=== PATIENT | female | born 1950 | race Caucasian/White ===

== ENCOUNTER 2024-02-06 08:29 | Inpatient (IN) | payer OTHER, SELFPAY ==
[2024-02-04 20:13] VITALS: BP 124/67
[2024-02-04 20:28] LABS: Hematocrit 35.1 % (37.0-47.0); Hemoglobin 12.1 g/dL (12.0-16.0); Mean Corp Hgb Conc. 34.5 g/dL (33.0-37.0); Mean Corpuscular Hgb 31.4 pg (27.0-31.0); Mean Corpuscular Volume 91.2 fL (81.0-99.0); Mean Platelet Volume 10.7 fL (7.4-10.4); Platelet Count 264 10^3/uL (130-400); Red Blood Cell Count 3.85 10^6/uL (4.20-5.40); Red Cell Dist. Width 13.2 % (11.5-14.5); White Blood Cell Count 7.3 10^3/uL (4.8-10.8)
[2024-02-04 20:46] LABS: ALT (SGPT) 16 U/L (0-35); AST (SGOT) 26 U/L (14-36); Albumin 4.2 g/dl (3.5-5.0); Alkaline Phosphatase 91 U/L (38-126); Blood Urea Nitrogen 16 mg/dl (7-17); Calcium 9.8 mg/dl (8.4-10.2); Carbon Dioxide 29 mmol/L (22-30); Chloride 102 mmol/L (98-107); Glucose 100 mg/dl (70-99); Potassium 4.6 mmol/L (3.5-5.1); Sodium 136 mmol/L (135-145); Total Bilirubin 0.6 mg/dl (0.2-1.3); Total Protein 7.2 g/dl (6.3-8.2); eGFR > 60.00
[2024-02-04 20:49] LABS: % Basophils 0.8 % (0-2); % Eosinophils 2.2 % (0-6); % Immature Granulocytes 0.1 % (0-0.5); % Lymphocytes 57.2 % (20.5-51.1); % Monocytes 11.1 % (1.7-9.3); % Neutrophils 28.6 % (42.2-75.2); Absolute Basophils 0.1 10^3/uL (0-0.2); Absolute Eosinophils 0.2 10^3/uL (0-0.7); Absolute Lymphocytes 4.2 10^3/uL (1.2-3.4); Absolute Monocytes 0.8 10^3/uL (0.1-0.6); Absolute Neutrophils 2.1 10^3/uL (1.4-6.5); Nucleated Red Blood Cells % 0 %
[2024-02-04 21:34] VITALS: BMI 24.7
--- NOTE | 2024-02-04 23:21 | ED.GENMED ---
History of Present Illness
General
Chief Complaint: Numbness
Source: patient
Exam Limitations: none
Time Seen by Provider: 02/04/24 22:57
Nursing documentation reviewed up to this point in time: agreed with
History of Present Illness
History of Present Illness:
Patient is a 73-year-old female reports around 7 PM she was sitting in bed and felt numbness and tingling to her right arm and in her right face. She reports it lasted for about a minute. She walked in the campo to get her daughter and symptoms
were resolved. She did feel little weak in her right arm as well. She denied any associated headache headache.
She does not feel that her right arm is 100 %send back to normal. She describes as very minimally heavy feeling.
She is on hormone replacement therapy
Review of Systems
Review of Systems
Allergies reviewed?: Yes
Other source history: family
All Other Systems: ROS reviewed and negative except as documented in HPI and ROS
Constitutional: Reports no symptoms
Respiratory: Reports no symptoms
Cardiac: Reports no symptoms; Denies chest pain, palpitations or syncope
ABD/GI: Reports no symptoms
: Reports no symptoms
Musculoskeletal: Reports no symptoms
Skin: Reports no symptoms
Neurological: Reports other (Paresthesias to right arm and right face has since resolved); Denies dizzy or headache
Psychiatric: Reports no symptoms
Phy Exam
General Physical Exam
General Presentation: no apparent distress
General age: appears stated age
General Skin: warm and dry
General Habitus: normal
General Mental: alert
General Hydration: appears well hydrated
Cardiovascular Exam
Cardiovascular Exam: regular rate/rhythm, no murmur and normal peripheral pulses
Pulmonary Exam
Pulmonary Exam: lungs clear and no respiratory distress
Neurological Exam
Neurological Exam: alert, oriented x3, no motor deficits, normal reflexs, no sensory deficits and speech normal
NIH Stroke Score
Level of Consciousness: 0 - Alert
LOC questions: 0-Answers both correctly
LOC Commands: 0-Performs both correctly
Best Gaze: 0-Normal
Visual Fontana: 0=Normal, no visual loss
Facial palsy: 0=Normal, symmetrical
Motor - Right Arm: 0=No drift 10 seconds
Motor - Left Arm: 0=No drift 10 seconds
Motor - Right Le-No drift 5 seconds
Motor - Left Le-No drift 5 seconds
Limb Ataxia: 0-Absent
Sensation: 0-Normal
Best Language: 0-No aphasia
Dysarthria: 0-Normal
Extinction and Inattention: 0-No abnormality
Total Score:: 0
Course
Orders/Labs/Results
Orders:
Orders
02/04/24 20:21
Complete Blood Count/With Diff Urgent
Comprehensive Metabolic Panel Urgent
02/04/24 23:22
CT Head W/o Iv Contrast Urgent
Comment:
Reason For Exam: right arm/face numbness
02/04/24 23:23
Electrocardiogram (*1) Stat
Reason for Study: Other
Other Reason for Exam: chest pain
EKG- Treatment ONCE
02/05/24 00:08
Aspirin Chewable [Low Strength Aspirin] 324 mg PO NOW STA
02/05/24 00:09
Clopidogrel Bisulfate [Plavix] 300 mg PO NOW STA
Abnormal Lab Results
02/04/24
20:21
RBC 3.85 L 10^6/uL
(4.20-5.40)
Hct 35.1 L %
(37.0-47.0)
MCH 31.4 H pg
(27.0-31.0)
MPV 10.7 H fL
(7.4-10.4)
Absolute Lymphs (auto) 4.2 H 10^3/uL
(1.2-3.4)
Absolute Monos (auto) 0.8 H 10^3/uL
(0.1-0.6)
Neutrophils % 28.6 L %
(42.2-75.2)
Lymphocytes % 57.2 H %
(20.5-51.1)
Monocytes % 11.1 H %
(1.7-9.3)
Glucose 100 H mg/dl
(70-99)
02/04/24 20:21
02/04/24 20:21
Vital Signs
Initial and Last Documented VS:
Initial Vital Signs
Temp Pulse Resp BP Pulse Ox
97.9 F 75 16 124/67 99
02/04/24 20:13 02/04/24 20:13 02/04/24 20:13 02/04/24 20:13 02/04/24 20:13
Last Documented Vital Signs
Temp Pulse Resp BP Pulse Ox
97.9 F 75 16 124/67 99
02/04/24 20:13 02/04/24 20:13 02/04/24 20:13 02/04/24 20:13 02/04/24 20:13
Phlebotomy Technician consulted with Physician
Phlebotomy Technician consulted with physician?: Yes
Name of Physician Consulted: Artur
MDM/Problems Addressed
Differential Diagnosis Includes:
not limited to: TIA CVA radiculopathy
MDM/Problems Addressed:
Patient is a 73-year-old female on oral estrogen therapy only no other medical history presents with complaints of right arm numbness and right facial numbness around 7 PM. She did feel sensation of heaviness with this. She denies any speech
difficulty denies any headaches. Her neuroexam is normal with an NIH of 0. Case discussed with neurology will CT head and if negative admit for TIA workup will give aspirin and Plavix at that time.
0009: CT head neg ASA/Plavix ordered
*Radiology
Radiology exam reviewed: radiology read reviewed
*Pulse Oximetry
Patient hypoxic: no
*EKG
Interpreted by ED Provider?: Yes
Heart Rate: 59
Rate: bradycardiac
Rhythm: sinus
*Critical Care Note
Total Time (30-74mins, 75-104mins- exclusive of procedures): Not Applicable
Patient Management
Discussion with other providers: [employer] Operator (neuro DR De Leon )
ED Attending Note
-
Portions of this chart may have been created with voice recognition software.� Occasional wrong word or��sound alike� substitutions may have occurred due to the inherent limitations of voice recognition software.
Discharge Plan
Departure
Patient Disposition: Admit
Date of Disposition: 02/05/24
Time of Disposition: 00:10
Admit to: Telemetry
Admit to doctor: hospitalist
Presentation/result/management discussed w/ accepting MD/DO: Hospitalist
Patient with high blood pressure during this ER visit?: No
Condition: Fair
Discharge Problem:
TIA (transient ischemic attack)
Referrals:
Shahnaz Solis MD [Family Provider] -
Interventions
Interventions:
*Risk Screen - Suicide Last Done: 02/04/24 21:34
*General Assessment Last Done: 02/04/24 20:13
*Neglect/Abuse Screening Last Done: 02/04/24 21:34
ED- Fall Risk Assessment Last Done: 02/04/24 21:34
ED- Neurological Assessment Last Done: 02/04/24 21:34
Discharge Date and Time
Print Language: SAMOAN
[2024-02-05] VITALS (9 sets, daily range): BP systolic 98–132; BP diastolic 53–72; PULSE 65–99; O2SAT 98–100; BMI 23.1
[2024-02-05] MEDS: LOW STRENGTH ASPIRIN 324 MG PO (00:21)
[2024-02-05] MEDS: PLAVIX 300 MG PO (00:21)
--- NOTE | 2024-02-05 01:46 | HPS.HSE ---
Family Physician
-
Family Physician: Shahnaz Solis
Chief Complaint
-
Numbness
History of Present Illness
Patient is a 73y F with no significant PMH who presents to ED complaining of numbness and tingling. Patient states she felt well until she got out of the shower this evening. She was seated upright in bed reading a book around 7:15 PM when she
noted numbness and tingling in the RUE. This spread to include tingling of the R face as well. Patient went to get her daughter for help and by the time she got down the campo the symptoms had resolved.
However, patient then appreciated a 'heavy' sensation or drift of the RUE.
Given this symptom, she presented to the ED for further evaluation and treatment.
She currently states that her symptoms have fully resolved and she is back to normal.
She denies any prior history of similar symptoms.
No recent illness / complaints.
Patient takes estrogen supplementation daily and vitamins.
Medical History
Past Medical History
Past Medical History: Reports None
Past Surgical History: Reports Other
Additional Past Surgical History:
Right Cervical Lymph Node Excision
KESHA
Foot Surgery
Social History
Tobacco: Former Smoker (Quit smoking in 1995. Approx 15 pack years total use.)
Alcohol: Occasional
Drug: None
Family History
Family History: Other (Father: Lymphoma Mother: DM)
Allergies / Home Medications
Allergies reflects when Allergies were last updated in [employer].
Home Medications with original date entered in [employer]
Allergy/Medication List:
Allergies
Allergy/AdvReac Type Severity Reaction Status Date / Time
lactose Allergy Unknown Unknown Verified 02/04/24 20:14
Home Medications
No Meds [No Current Medications] 02/05/24
Review of Systems
-
History Source: Patient
A 12 point ROS was completed and negative except as noted: Yes
Constitutional: Denies Fever or Chills
Respiratory: Denies Cough or Trouble Breathing
Cardiac: Denies Chest Pain or Palpitations
Abdomen/GI: Denies Abdominal Pain, Nausea, Vomiting or Diarrhea
: Denies Dysuria or Flank Pain
Musculoskeletal: Denies Joint Pain or Edema
Neurological: Reports Numbness; Denies Dizzy, Headache or Weakness
Psych: Denies Depression or Anxiety
Physical Exam
Vital Signs
Vital Signs
Temp Pulse Resp BP Pulse Ox
97.9 F 66 19 128/58 99
02/04/24 20:13 02/05/24 01:15 02/05/24 01:15 02/05/24 00:50 02/05/24 00:50
Physical Exam
General: Other (73y F in no acute distress.)
HEENT: Moist mucous membranes, PERRLA and Other (No carotid bruits.)
Respiratory: Clear; No Wheezes, Rales or Rhonchi
Cardiac: S1/S2 and Regular Rhythm; No Murmur
GI: Soft, Non Tender, Non Distended and Normal Bowel Sounds
Musculoskeletal: No Clubbing, No Cyanosis and No Edema
Neuro: AO x 3 and Nonfocal/grossly intact
Laboratory Results
-
02/04/24 20:21
02/04/24 20:21
Laboratory Results
Total Bilirubin 0.6 mg/dl (0.2-1.3) 02/04/24 20:21
AST 26 U/L (14-36) 02/04/24 20:21
ALT 16 U/L (0-35) 02/04/24 20:21
Alkaline Phosphatase 91 U/L (38-126) 02/04/24 20:21
Impression/Plan
-
A/P: Patient is a 73y F with no significant PMH who presents to ED complaining of numbness, tingling and heaviness in the RUE.
CVA / TIA
- Observe overnight for further evaluation and treatment.
- Monitor for any new / recurrent symptoms.
- DAPT for now.
- MRI brain in the AM for further evaluation.
- Neurology consult in the AM.
DVT Prophylaxis: SCDs
Code Status: Full
[2024-02-05] MEDS: LOW STRENGTH ASPIRIN 81 MG PO (07:36)
[2024-02-05] MEDS: PLAVIX 75 MG PO (07:36)
[2024-02-05 08:04] LABS: Hematocrit 35.7 % (37.0-47.0); Hemoglobin 12.1 g/dL (12.0-16.0); Mean Corp Hgb Conc. 33.9 g/dL (33.0-37.0); Mean Corpuscular Hgb 31.8 pg (27.0-31.0); Mean Corpuscular Volume 93.9 fL (81.0-99.0); Mean Platelet Volume 11.7 fL (7.4-10.4); Platelet Count 241 10^3/uL (130-400); Red Cell Dist. Width 13.1 % (11.5-14.5); White Blood Cell Count 5.6 10^3/uL (4.8-10.8)
--- NOTE | 2024-02-05 08:08 | CON.NEURO4 ---
Addendum entered and electronically signed by Eleno De Leon MD 02/05/24 11:25:
I saw and examined the patient I reviewed the note by Akilah Encinas agree with the findings of following comments:
73-year-old right-handed woman with little past medical history besides migraine visual aura without headache and previous migraines in her younger years presented to hospital with short lasting sudden episode of right arm and right lower face
paresthesia happening yesterday while reading in bed in the evening. Symptoms have resolved totally and she feels well no recent headache head trauma or neck trauma, no previous similar instances of this. The symptoms were sudden in onset and
lasted quite a brief time on the order of less than 30 to 60 seconds.
Patient does relate migraine visual auras lasting around 20 to 30 minutes without headache which are rare.
She does take estrogen supplement after having had hysterectomy in the past has been on this for long-term
Neurologic examination unremarkable
CT head noncontrast no abnormality seen
Assessment: High suspicion for TIA given sudden onset of focal neurologic symptoms along with sudden offset, duration is a bit too short and rapid to be migraine aura. Unlikely but would manage differential diagnosis for this to be a high cervical
spine based issue but she has no concerning symptoms concerning for cervical spinal cord compromise. Estrogen supplement while at low-dose could contribute to some degree of acquired hypercoagulability and she additionally has migraine with aura
which in general I would not want due to a small but real increased risk of stroke.
Recommendations
-Discussed strong recommendation for her to stop estrogen now
-Will plan for treating as TIA DAPT therapy aspirin clopidogrel for total of 21 days with aspirin monotherapy after
-LDL is 45 would not start statin
-Check MRI brain MRA head and neck
-Goal normotension
-NIH and neurologic checks
Original Note:
Documented by User: Akilah Luong NP 02/05/24 10:17
Consultation - Neurology 4
-
CONSULTING PHYSICIAN: Leonel De Leon MD
REFERRING PHYSICIAN: Hospitalists/Dr. Linares
DICTATED BY: CAIT Howe
DATE/TIME OF REQUEST: 02/04/24
DATE/TIME OF CONSULTATION: 02/05/24
Reason for Consultation: CVA/TIA
History of Present Illness:
This is a 73-year-old right-handed female who has presented to the hospital on 02/04/24 with report of right arm numbness. Patient reports feeling in her usual state yesterday (02/04/24). She came home from work, showered, and then sat down upright
with her back against pillows in her bed to read at 1915 when she suddenly had a tingling sensation start in her mid right forearm, then spread up her arm to her shoulder, and then up to her right jaw. She got up and walked down the campo to tell her
daughter, and reports that the tingling sensation resolved in under one minute. After the tingling resolved, she reports having a 'heavy' sensation in her right arm that lasted until sometime in the middle of the night. She denies any leg
involvement or neck/back pain. CT head was obtained on arrival in the ER and is negative for any acute abnormalities. NIHSS was 0. She was not a candidate for TNK/IAT due to NIHSS 0. She was loaded with DAPT. She denies any headache, dizziness,
vision changes, speech/swallowing difficulty, nausea, weakness, chest pain, palpitations, and shortness of breath. She denies any history of TIA, stroke, or events like this in the past. She reports a history of migraines in her teenage years and
she also occasional has an ocular migraine where she sees zig-zag lines for 15-30 minutes but does not develop a headache. She reports having a 'cold' for about 1.5 weeks associated with throat discomfort/chest congestion, no fever or chills. She
was not taking any blood thinning medications. She has been on an estrogen supplement, Estrace 1mg daily, for over a decade since her KESHA.
Past Medical History: Migraines in her teens, occular migraines
Surgical History: Right cervical lymph node excision, KESHA, foot surgery
Family History: Maternal grandmother- HEIDI in her 80's.
Social History: Former smoker. Occasional alcohol. Denies illicit drug use. She works in the [employer] department at [employer]. Lives with her daughter.
Allergies: Lactose.
Home Medications: Estrace 1mg daily.
Review of Symptoms:
Patient denies any fever, headache, chest pain, shortness of breath, GI or symptoms.
�Per the HPI.�All systems are reviewed negative except above.
Physical Exam:
The patient is afebrile, abdomen is nondistended, breathing is unlabored, skin is warm and dry, no edema.
NIH Stroke Scale:
I performed the NIH stroke scale on the patient on 02/05/24 at 0845. The patient scored 0 points on the NIH stroke scale assessment, which were assigned as follows: See below.
Neurologic Examination:
The patient is awake, alert and oriented x 3. She is able to follow commands and answer questions appropriately. There is no aphasia or dysarthria. On cranial nerve assessment, pupils are 3 mm bilateral, round and reactive to light and
accommodation. Visual fontana are full. Extraocular movements are intact. Facial sensations are intact and bilaterally symmetrical, there is no facial asymmetry. Hearing is intact bilaterally to normal conversation volume. Tongue palate and uvula are
midline. Sternocleidomastoid strengths are full bilaterally. Motor strengths are 5/5 bilateral upper and lower extremities on medical research Wheelwright scale. There is no drift or involuntary movement noted. Deep tendon reflexes are 2+ bilateral
upper and lower extremities and Babinski is absent bilaterally. Sensations of touch, temperature and vibration are intact and bilaterally symmetrical. There was no extinction noted on double simultaneous stimulation. Coordination is intact by finger
to nose bilaterally.
Lab Results: See below.
Neuro Imaging:
1. CT Head 02/04/24: No acute intracranial abnormality noted.
Differentials for the patient's presentation include:
1. TIA or small ischemic stroke possibly producing patient's symptoms.
2. Duration of symptoms too short to be very supportive of migraine aura.
3. Unlikely to be a nerve compression issue due to lack of pain, not seated in an abnormal position.
3. Metabolic abnormality possibly producing symptoms but less likely.
4. Orthostatic vital signs are positive, not likely related to symptoms.
Patient has the following risk factors for their symptoms: estrogen supplement, ocular migraines
IV Tenecteplase/IAT candidacy: She was not a candidate for TNK/IAT due to NIHSS 0.
Recommendations:
-Continue DAPT with aspirin 81mg and Plavix 75mg daily for 21 days. After 21 days, discontinue Plavix and continue aspirin 81mg daily only, indefinitely.
-Permissive hypertension SBP<220, DBP<120 until 191 today.
-MRI brain, MRA head/neck pending.
-TTE pending.
-Check orthostatic vital signs BID. WHITNEY stockings, increased fluid intake, slow position changes for orthostasis.
-Would stop taking the estrogen supplement as this can be associated with a slight increase in risk for stroke.
-LDL goal <70. LDL is 45. Okay to hold off starting statin therapy as LDL is at goal.
-Goal normoglycemia, hbA1c is pending.
-Checking blood work for metabolic abnormalities.
-NIHSS and neurological checks per unit guidelines.
-Provide patient with a stroke education packet.
-PT/OT evaluations.
-DVT prophylaxis.
-Will follow pending results.
-Patient should follow-up with Neurology as an outpatient in about 4 weeks, may see the BELT OPERATOR or one of the physicians.
Discussed patient care with: Dr. De Leon, the patient
Vital Signs and Labs
-
Vital Signs and Labs:
Vital Signs
Temp Pulse Resp BP Pulse Ox
97.7 F 68 18 130/63 96
02/05/24 07:35 02/05/24 07:35 02/05/24 07:35 02/05/24 07:35 02/05/24 07:35
Lab Results
02/05/24 06:01
02/05/24 06:01
Sodium 138 mmol/L (135-145) 02/05/24 06:01
Potassium 4.3 mmol/L (3.5-5.1) 02/05/24 06:01
BUN 12 mg/dl (7-17) 02/05/24 06:01
Glucose 84 mg/dl (70-99) 02/05/24 06:01
Calcium 9.7 mg/dl (8.4-10.2) 02/05/24 06:01
LDL Cholesterol, Calc 45 mg/dl 02/05/24 06:01
Medications
-
Active Medications
Generic Name Dose Route Start Last Admin
Trade Name Freq PRN Reason Stop Dose Admin
Acetaminophen 650 mg 02/05/24 03:21
Acetaminophen 325 Mg Tablet PO 03/04/24 03:20
Q4HPRN PRN
Mild Pain / Temp > 101
Aspirin 81 mg 02/05/24 08:00 02/05/24 07:36
Aspirin 81 Mg Chewable Tablet PO 03/04/24 07:59 81 mg
DAILY NIYA Administration
Clopidogrel Bisulfate 75 mg 02/05/24 08:00 02/05/24 07:36
Clopidogrel 75 Mg Tablet PO 03/04/24 07:59 75 mg
DAILY NIYA Administration
Sodium Chloride 0 flush 02/05/24 04:00
Sodium Chloride 0.9% (Flush) Syringe IV 03/04/24 03:59
PER PROTOCOL NIYA
Home Medications
�Medication �Instructions �Recorded
No Meds [No Current Medications] 02/05/24
NIH Stroke Score
Subsequent NIH Scale
Date of Subsequent NIH Scale: 02/05/24
Time of Subsequent NIH Scale: 08:45
NIH Stroke Score
Level of Consciousness: 0 - Alert
LOC Questions: 0-Answers both correctly
LOC Commands: 0-Performs both correctly
Best Horizontal Gaze: 0-Normal
Visual Fontana: 0=Normal, no visual loss
Facial Palsy: 0=Normal, symmetrical
Motor - Right Arm: 0=No drift 10 seconds
Motor - Left Arm: 0=No drift 10 seconds
Motor - Right Le-No drift 5 seconds
Motor - Left Le-No drift 5 seconds
Limb Ataxia: 0-Absent
Sensation: 0-Normal
Best Language: 0-No aphasia
Dysarthria: 0-Normal
Extinction and Inattention: 0-No abnormality
Total Score:: 0
Modified Selfridge (mRS) Score
Modified Jeanie Scale (mRS): No symptoms
Score: 0

Documented by User: Eleno De Leon MD 02/05/24 11:21
NIH Stroke Score
NIH Stroke Score
Total Score:: 0
Modified Selfridge (mRS) Score
Score: 0
[2024-02-05 08:37] LABS: Blood Urea Nitrogen 12 mg/dl (7-17); Calcium 9.7 mg/dl (8.4-10.2); Carbon Dioxide 25 mmol/L (22-30); Chloride 106 mmol/L (98-107); Estimated Creatinine Clearance 64 ml/min; Glucose 84 mg/dl (70-99); HDL Cholesterol 99 mg/dl; LDL Cholesterol, Calculated 45 mg/dl; Potassium 4.3 mmol/L (3.5-5.1); Sodium 138 mmol/L (135-145); Total Cholesterol 157 mg/dl (50-199); Triglyceride 65 mg/dl (10-149); Very Low Density Lipoprotein 13 mg/dl (0-30); eGFR > 60.00
[2024-02-05 08:51] LABS: TSH Reflex To Free T4 2.59 uIU/ml (0.47-4.68)
[2024-02-05 10:44] LABS: Glycohemoglobin (HgbA1c) 5.6 % (4.0-5.6)
[2024-02-05 12:26] LABS: Ferritin 92.3 ng/ml (11.1-264.0)
--- NOTE | 2024-02-05 12:41 | W.PN.HOSP.TC ---
Today's Communication/Plan
-
Monitor vitals
see plan
MRI pending
Continue aspirin Plavix
Nonbillable note
Assessment / Plan
Assessment / Plan
General: Other (73y F in no acute distress.)
HEENT: Moist mucous membranes, PERRLA and Other (No carotid bruits.)
Respiratory: Clear; No Wheezes, Rales or Rhonchi
Cardiac: S1/S2 and Regular Rhythm; No Murmur
GI: Soft, Non Tender, Non Distended and Normal Bowel Sounds
Musculoskeletal: No Clubbing, No Cyanosis and No Edema
Neuro: AO x 3 and Nonfocal/grossly intact
CVA / TIA
- Monitor for any new / recurrent symptoms.
- DAPT for 21 days and then ASA alone
- MRI brain pending
- Neurology eval
dc estrogen
A1c 5.6, LDL 45
DVT Prophylaxis: SCDs
Code Status: Full
Anticipated Discharge: Within 24 hours
Subjective/Interval History
-
Date of Service: February 05, 2024
Denies pain
Objective Data
-
Labs:
Laboratory Results
02/05/24
06:01
WBC 5.6
Hgb 12.1
Hct 35.7 L
Plt Count 241
Sodium 138
Potassium 4.3
Chloride 106
Carbon Dioxide 25
BUN 12
Creatinine 0.7
Glucose 84
Calcium 9.7
Vital Signs:
Vital Signs
Temp Pulse Resp BP Pulse Ox
97.6 F 63 18 120/67 96
02/05/24 11:19 02/05/24 11:19 02/05/24 11:19 02/05/24 11:19 02/05/24 11:19
[2024-02-05 12:58] LABS: Folate > 20.0 ng/ml (2.76-20); Vitamin B12 611 pg/ml (239-931)
--- NOTE | 2024-02-05 16:29 | CM ---
CM met with Lilly at bedside to complete IA. She and her daughter live in a 2 SH with bed and bath on the second level. 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
Pt has been cleared by PT and OT with no needs.
Plan: Lilly will return home with her daughter. No needs identified.
PCP: Shahnaz Solis
Pharmacy: [facility] in [place]
[2024-02-06] VITALS (7 sets, daily range): BP systolic 74–109; BP diastolic 47–68
--- NOTE | 2024-02-06 08:03 | W.PN.NEURO.1 ---
Addendum entered and electronically signed by Eleno De Leon MD 02/06/24 14:32:
I saw and evaluate the patient I reviewed note by Akilah Encinas agree with the findings the following comments:
73-year-old woman presenting with right arm and face paresthesia with some mild right arm weakness and has been found to have a small left frontal MCA ischemic stroke on brain MRI no significant carotid or intracranial vessel stenosis on MRA
studies., She was taking estrogen supplement after hysterectomy that could have been playing a role in producing some degree of an acquired hypercoagulable state.
She is feeling much better with resolution of symptoms and normal neurologic examination
Assessment: Left MCA ischemic stroke embolic in etiology with possible component by hypercoagulable state by estrogen supplementation.
Recommendations
-Aspirin clopidogrel DAPT therapy for 21 days and then aspirin thereafter
-LDL is less than 70 not recommending
-Stressed that she needs to stop estrogen
-Short-term cardiac monitoring as an outpatient do not feel she would need Linq
-Outpatient neurology follow-up
-No barriers to discharge
Original Note:
Documented by User: Akilah Luong NP 02/06/24 12:20
Today's Communication / Plan
-
.
Neuro Assessment/Plan
Assessment
73-year-old right-handed woman with little past medical history besides migraine visual aura without headache and previous migraines in her younger years presented to hospital with short lasting sudden episode of right arm and right lower face
paresthesia happening yesterday while reading in bed in the evening. Symptoms have resolved totally and she feels well no recent headache head trauma or neck trauma, no previous similar instances of this. The symptoms were sudden in onset and
lasted quite a brief time on the order of less than 30 to 60 seconds.
Patient does relate migraine visual auras lasting around 20 to 30 minutes without headache which are rare.
She does take estrogen supplement after having had hysterectomy in the past has been on this for long-term.
-MRI Brain 02/05/24: Focal area of acute to subacute infarction involving the posterior left frontal lobe, as described. Mild to moderate T2 and FLAIR white matter hyperintensities, commonly seen with aging and usually attributed to small vessel
ischemic disease. These have not been shown to correlate with a focal neurologic deficit.
Paranasal sinus disease as described.
-MRA head/neck 02/05/24: Normal.
I. Acute left frontal lobe ischemic stroke. Etiology possible history of migraine aura in addition to taking daily estrogen supplement vs small vessel disease.
II. Hypotension and orthostatic hypotension, unclear etiology.
Plan
-Continue DAPT with aspirin 81mg and Plavix 75mg daily for 21 days. After 21 days, discontinue Plavix and continue aspirin 81mg daily only, indefinitely.
-Would stop taking the estrogen supplement now as this can be associated with a slight increase in risk for stroke.
-Goal normotension.
-Check orthostatic vital signs BID. WHITNEY stockings, increased fluid intake, slow position changes for orthostasis.
-Patient should complete short term cardiac monitoring as an outpatient to rule out cardiac arrhythmia.
-LDL goal <70. LDL is 45. Okay to hold off starting statin therapy as LDL is at goal.
-Goal normoglycemia, hbA1c is 5.6.
-NIHSS and neurological checks per unit guidelines.
-Provide patient with a stroke education packet.
-PT/OT evaluations.
-DVT prophylaxis.
-Patient should follow-up with Neurology as an outpatient in about 4 weeks, may see the [facility]AB[facility]ATION [facility] or one of the physicians.
Subjective/Objective
Subjective Data
Date of Service: February 06, 2024
No acute events overnight. Patient is hypotensive this morning, reports feeling dizzy upon standing. She reports poor oral intake and lack of sleep over the past several days. She denies any headache, vision changes, speech/swallow difficulty,
numbness, weakness, nausea, chest pain, palpitations, and shortness of breath.
Objective Data
Vital Signs
Temp Pulse Resp BP Pulse Ox
98 F 88 15 74/47 98
02/06/24 07:25 02/06/24 07:28 02/06/24 07:25 02/06/24 07:28 02/06/24 07:25
Lab Results
02/05/24 06:01
02/05/24 06:01
Sodium 138 mmol/L (135-145) 02/05/24 06:01
Potassium 4.3 mmol/L (3.5-5.1) 02/05/24 06:01
BUN 12 mg/dl (7-17) 02/05/24 06:01
Glucose 84 mg/dl (70-99) 02/05/24 06:01
Calcium 9.7 mg/dl (8.4-10.2) 02/05/24 06:01
LDL Cholesterol, Calc 45 mg/dl 02/05/24 06:01
Vitamin B12 611 pg/ml (239-931) 02/05/24 06:01
Patient Allergies
lactose Allergy (Unknown, Verified 02/04/24 20:14)
Unknown
LDL Level: <70, no statin needed
Review of Systems
-
History Source: Patient
EENT: Negative Blurry Vision, Decreased Vision or Swallowing Difficulty
Respiratory: Cough; Negative Trouble Breathing
Cardiac: Negative Chest Pain or Palpitations
Abdomen/GI: Negative Nausea
Neuro: Dizzy; Negative Headache, Weakness, Numbness, Ataxia, Tremors or Speech Problem
Physical Exam
-
General: Well Developed, Well Nourished and No Apparent Distress
Eyes: PERRLA
HEENT: Normocephalic and Atraumatic
Neck: Full Range of Motion
Respiratory: No Dyspnea
GI: Non-distended
Extremities: No Clubbing, No Cyanosis and No Edema
Psych: Unremarkable
Extended Neurological Exam
Mood & Affect: Mood Unremarkable and Affect Unremarkable
Attention Span & Concentration: Awake, Alert, Interactive and No Difficulty with 2 Step Request
Memory: Unremarkable (AAOx3) and Able to Recall
Tremor: Hand Tremor Absent and Head Tremor Absent
Involuntary Movement: None
Speech: Quality Unremarkable, Quantity Unremarkable and Rate of Production Unremarkable
Cranial Nerve II: Left Eye: Pupillary Reactivity Unremarkable, Pupillary Size Unremarkable and Visual Fontana Intact
Cranial Nerve II: Right Eye: Pupillary Reactivity Unremarkable, Pupillary Size Unremarkable and Visual Fontana Intact
Cranial Nerves III, IV, : Extraocular Movement: Extraocular Movement Full in all Directions
Cranial Nerve V: Facial Sensation: Intact to Light Touch
Cranial Nerve VII: Facial Symmetry: Normal Facial Symmetry
Cranial Nerve VIII: Hearing: Unremarkable Hearing to Normal Conversational Volume
Cranial Nerve XI: Shoulder Shrug: Unremarkable
Cranial Nerve XII: Tongue Protusion: Midline
Muscle Strength, Overall: Full Throughout
Muscle Bulk & Tone: Bulk Unremarkable and Tone Unremarkable
Pronator Drift: No Drift in Upper Extremities and No Drift in Lower Extremities
Deep Tendon Reflexes: Unremarkable Throughout
Cold Sensation: Unremarkable
Vibration Sensation: Unremarkable
Touch Sensation: Double Simultaneous Stimulation Unremarkable
Coordination: Qqlaha-rfbv-jognag Testing Unremarkable
Babinski Sign: Absent Bilaterally
Modified Coles Score (MRS)
-
Modified Coles Scale (mRS): No symptoms
Score: 0
Data Reviewed
-
CT Head: Report Reviewed and Image Reviewed
MRI Head: Report Reviewed and Image Reviewed
MRA Head: Report Reviewed and Image Reviewed
MRA Neck: Report Reviewed and Image Reviewed
Echocardiogram: Report Reviewed
Orthostatic Testing: Report Reviewed
Labs: Report Reviewed
Lipid Profile: Report Reviewed
HgbA1C: Report Reviewed
Reviewed with: Physician and Patient
Medications
-
Active Medications
Generic Name Dose Route Start Last Admin
Trade Name Freq PRN Reason Stop Dose Admin
Acetaminophen 650 mg 02/05/24 03:21
Acetaminophen 325 Mg Tablet PO 03/04/24 03:20
Q4HPRN PRN
Mild Pain / Temp > 101
Aspirin 81 mg 02/05/24 08:00 02/05/24 07:36
Aspirin 81 Mg Chewable Tablet PO 03/04/24 07:59 81 mg
DAILY NIYA Administration
Clopidogrel Bisulfate 75 mg 02/05/24 08:00 02/05/24 07:36
Clopidogrel 75 Mg Tablet PO 03/04/24 07:59 75 mg
DAILY NIYA Administration
Sodium Chloride 0 flush 02/05/24 04:00
Sodium Chloride 0.9% (Flush) Syringe IV 03/04/24 03:59
PER PROTOCOL NIYA
Home Medications
�Medication �Instructions �Recorded
No Meds [No Current Medications] 02/05/24
NIH Stroke Score
Subsequent NIH Scale
Date of Subsequent NIH Scale: 02/06/24
Time of Subsequent NIH Scale: 09:30
NIH Stroke Score
Level of Consciousness: 0 - Alert
LOC Questions: 0-Answers both correctly
LOC Commands: 0-Performs both correctly
Best Horizontal Gaze: 0-Normal
Visual Fontana: 0=Normal, no visual loss
Facial Palsy: 0=Normal, symmetrical
Motor - Right Arm: 0=No drift 10 seconds
Motor - Left Arm: 0=No drift 10 seconds
Motor - Right Le-No drift 5 seconds
Motor - Left Le-No drift 5 seconds
Limb Ataxia: 0-Absent
Sensation: 0-Normal
Best Language: 0-No aphasia
Dysarthria: 0-Normal
Extinction and Inattention: 0-No abnormality
Total Score:: 0
Modified Coles (mRS) Score
Modified Coles Scale (mRS): No symptoms
Score: 0

Documented by User: Eleno De Leon MD 02/06/24 14:31
Modified Coles Score (MRS)
-
Score: 0
NIH Stroke Score
NIH Stroke Score
Total Score:: 0
Modified Jeanie (mRS) Score
Score: 0
[2024-02-06] MEDS: LOW STRENGTH ASPIRIN 81 MG PO (08:11)
[2024-02-06] MEDS: PLAVIX 75 MG PO (08:11)
--- NOTE | 2024-02-06 11:24 | W.PN.HOSP.TC ---
Today's Communication/Plan
-
Monitor vital signs and see plan
Continue aspirin and Plavix
Spoke with neurology and they are okay with discharge today
time of discharge 37 minutes
Assessment / Plan
Assessment / Plan
General: Other (73y F in no acute distress.)
HEENT: Moist mucous membranes, PERRLA and Other (No carotid bruits.)
Respiratory: Clear; No Wheezes, Rales or Rhonchi
Cardiac: S1/S2 and Regular Rhythm; No Murmur
GI: Soft, Non Tender, Non Distended and Normal Bowel Sounds
Musculoskeletal: No Clubbing, No Cyanosis and No Edema
Neuro: AO x 3 and Nonfocal/grossly intact
Acute/subacute CVA
MRI consistent with infarction involving the posterior left frontal lobe
- Monitor for any new / recurrent symptoms.
- DAPT for 21 days and then ASA alone
- Neurology following
dc estrogen
A1c 5.6, LDL 45
DVT Prophylaxis: SCDs
Code Status: Full
Anticipated Discharge: Today
Subjective/Interval History
-
Date of Service: February 06, 2024
denies pain
Objective Data
-
Vital Signs:
Vital Signs
Temp Pulse Resp BP Pulse Ox
98 F 95 15 108/61 98
02/06/24 07:25 02/06/24 10:39 02/06/24 07:25 02/06/24 10:39 02/06/24 07:25
I&O
02/05/24 02/06/24 02/07/24
06:59 06:59 06:59
Intake Total 780 / 780
Balance 780 / 780
--- NOTE | 2024-02-06 11:45 | W.DCSUMMARY ---
Discharge Summary
Discharge Data
Date of Admission: 02/06/24
Date of Discharge: 02/06/24
-
Pending Results: No
Hospital Course
73-year-old female came to the hospital with right arm numbness and facial numbness. CT scan admission was negative for any CVA. MRI was later done which showed infarction involving the posterior left frontal lobe. Patient was initially started
on aspirin and Plavix which was continued upon discharge for total of 21 days and then patient instructed to continue aspirin alone. Patient was also instructed to follow-up with neurology outpatient. Patient was also instructed to discontinue
estrogen. Hemoglobin A1c was done which was 5.6 and LDL was 45 so patient did not require any other medications. Once patient symptoms improved, she was then discharged home with instructions to follow-up with all her physicians outpatient.
Discharge Plan
-
Patient Disposition: Home (Routine Discharge)
Discharge Diagnosis/Procedures: Acute CVA
Diet: As tolerated
Activity: As tolerated
Driving Restrictions: As prior to admission
Bathing Restrictions: None
Activity Restrictions/Additional Instructions:
Continue with aspirin and Plavix for another 19 days and then discontinue Plavix and continue aspirin indefinitely
Discontinue ESTROGEN
Referrals:
Eleno De Leon MD [Active] - in three to four weeks
Shahnaz Solis MD [Family Provider] - in less than 1 week
Prescriptions:
New
aspirin 81 mg Tablet,Chewable
81 mg PO DAILY Qty: 30 0RF
clopidogrel 75 mg Tablet
75 mg PO DAILY Qty: 19 0RF
Discharge Orders:
Discharge Patient (As Directed); Ordered 02/06/24
Ordered By: Angel Gagnon
Discharge Date and Time
Discharge Date/Time: 02/06/24 14:09
Print Language: HUNGARIAN
== END 2024-02-06 14:09 | disposition home or self-care (01) | DRG 66 ==
LOC: 4 EAST ACU 08:29
PROVIDERS: Registered Nurse Critical Care Medicine; ADMITTING PHYSICIAN Hospitalist; ATTENDING PHYSICIAN Internal Medicine; CONSULT PHYSICIAN Student in an Organized Health Care Education/Training Program; EMERGENCY PHYSICIAN Emergency Medicine; FAMILY PHYSICIAN Family Medicine
DX: I63.412 Cerebral infarction due to embolism of left middle cerebral artery (principal); G43.109 Migraine with aura, not intractable, without status migrainosus; R29.700 NIHSS score 0; I95.1 Orthostatic hypotension; T38.5X5A Adverse effect of other estrogens and progestogens, initial encounter; Z87.891 Personal history of nicotine dependence; Z82.3 Family history of stroke
CPT/HCPCS: 70450; 70544; 70548; 70551; 80048; 80053; 80061; 82607; 82728; 82746; 83036; 84443; 85025; 85027; 93005; 93306; 97162; 97166; 99285; A9585

== ENCOUNTER 2024-02-12 07:12 | Emergency (ER) | payer OTHER, SELFPAY ==
[2024-02-12 07:14] VITALS: BP 132/72
--- NOTE | 2024-02-12 07:48 | ED.CVA ---
History of Present Illness
General
Chief Complaint: CVA/TIA Symptoms
Source: patient
Exam Limitations: none
Time Seen by Provider: 02/12/24 07:26
Onset of Stroke Symptoms
Onset of symptoms known: Yes
Date of onset of symptoms: 02/12/24
History of Present Illness
History of Present Illness:
See MDM
Past History
Past History
ED Past Medical History: CVA
ED Past Surgical History: Gynecological
Social History
Tobacco: Non-smoker
Alcohol: None
Phy Exam
Physical Exam
Physical Exam:
See MDM
NIH Stroke Score
Level of Consciousness: 0 - Alert
LOC questions: 0-Answers both correctly
LOC Commands: 0-Performs both correctly
Best Gaze: 0-Normal
Visual Fontana: 0=Normal, no visual loss
Facial palsy: 0=Normal, symmetrical
Motor - Right Arm: 0=No drift 10 seconds
Motor - Left Arm: 0=No drift 10 seconds
Motor - Right Le-No drift 5 seconds
Motor - Left Le-No drift 5 seconds
Limb Ataxia: 0-Absent
Sensation: 0-Normal
Best Language: 0-No aphasia
Dysarthria: 0-Normal
Extinction and Inattention: 0-No abnormality
Total Score:: 0
Course
Orders/Labs/Results
Orders:
Orders
02/12/24 07:47
Electrocardiogram (*1) Urgent
Reason for Study: Chest Pain
EKG- Treatment ONCE
02/12/24 08:01
Troponin I Urgent
Vital Signs
Initial and Last Documented VS:
Initial Vital Signs
Temp Pulse Resp BP Pulse Ox
98.4 F 72 18 132/72 100
02/12/24 07:14 02/12/24 07:14 02/12/24 07:14 02/12/24 07:14 02/12/24 07:14
Last Documented Vital Signs
Temp Pulse Resp BP Pulse Ox
98.4 F 72 18 132/72 96
02/12/24 07:14 02/12/24 07:14 02/12/24 07:14 02/12/24 07:14 02/12/24 08:08
MDM/Problems Addressed
Differential Diagnosis Includes:
HPI and MDM Narrative:
73-year-old female presenting with resolved tingling to her right arm. This lasted only a few seconds. This occurred while she was getting up to go to the bathroom. Patient got concerned because she had a very similar issue recently for which she
was admitted and found to have a stroke. It was thought to be related to her estrogen supplements. She had an MRI and an MRA. She was discharged on dual antiplatelet therapy. Patient was unsure if this was related to her recent stroke or if this
was potentially something else. Symptoms have since resolved.
We discussed this is likely related to her recent stroke. Given that all symptoms are resolved, no concern for bleeding in the recent stroke.
Physical exam
General: Well appearing and non-toxic
HEENT: protecting airway
Neck: appears supple
CV: No evidence of cyanosis. Regular rate and rhythm
Resp: No accessory muscle use
Abd: Non-distended
Extremities: No deformities
Neuro: alert. No focal neurodeficits
Psych: Normal affect
Skin: Intact
Problems Addressed including Acute and Chronic Conditions affecting care:
1. Right arm tingling
Acuity: acute
Prognosis: stable
Details: Likely in the setting of recent stroke. She is already medically optimized. Symptoms have quickly resolved indicating less likely there is bleeding in the penumbra. Will obtain troponin to rule out cardiac pathology. Patient will
otherwise follow-up with her neurologist as already scheduled.
Updates
Troponin negative. EKG nonischemic. Patient feels comfortable going home
Differential Diagnosis (but not limited to): TIA, coronary artery disease, paresthesias
Testing considered: CT head
Drug therapy (if applicable): OTC meds, please see d/c instruction regarding Rx drugs
Amount and/or Complexity of Data Reviewed
Clinical info obtained from: Patient
External data reviewed: Patient had recent stroke and already had MRI and MRI
Labs I independently reviewed (but not limited to): Troponin normal
Radiology: N/A
Pulse Ox: not hypoxic
EKG independently reviewed: Sinus rhythm, normal axis, no STEMI
Glassie: N/A
Critical Care: N/A
Risk of Complication:
Social Determinants of health: Good social support
Discussed with other providers: N/A
Escalation of Care includes Admit/Obs: After being observed in the Emergency Department, pt stable for discharge.
Occasional wrong word or 'sound a like' substitutions may have occurred due to the inherent limitations of voice recognition software. Read the chart carefully and recognize, using context, where substitutions have occurred.
*Critical Care Note
Total Time (30-74mins, 75-104mins- exclusive of procedures): Not Applicable
ED Attending Note
-
Portions of this chart may have been created with voice recognition software.� Occasional wrong word or��sound alike� substitutions may have occurred due to the inherent limitations of voice recognition software.
Discharge Plan
Departure
Patient Disposition: Home (Routine Discharge)
Date of Disposition: 02/12/24
Time of Disposition: 09:21
Patient with high blood pressure during this ER visit?: No
Discharge Problem:
TIA (transient ischemic attack)
Prescriptions:
No Action
aspirin 81 mg Tablet,Chewable
81 mg PO DAILY Qty: 30 0RF
clopidogrel 75 mg Tablet
75 mg PO DAILY Qty: 19 0RF
acetaminophen [Tylenol Extra Strength] 500 mg Tablet
500 mg PO Q6HPRN PRN (Reason: mild pain)
zinc sulfate 50 mg zinc (220 mg) Tablet
50 mg PO DAILY
fluticasone propionate [Flonase] 50 mcg/actuation [place],Suspension
1 spray INTRANASAL DAILY
vitamin E 268 mg (400 unit) Capsule
268 mg PO Q72H
Visbiome 112.5 billion cell Capsule
1 cap PO DAILY
[id number] tablet
1 tab PO DAILY
Referrals:
Shahnaz Solis MD [Family Provider] -
Activity Restrictions/Additional Instructions:
Please return for any worsening symptoms.
You may return at any time if you have further concerns.
Please follow up with your doctor.
Interventions
Interventions:
*Risk Screen - Suicide Last Done: 02/12/24 07:14
*General Assessment Last Done: 02/12/24 07:14
*Neglect/Abuse Screening Last Done: 02/12/24 07:14
ED- Fall Risk Assessment Last Done: 02/12/24 08:08
*ED COVID-19 Vaccine History Last Done: 02/12/24 08:08
ED- Pulmonary Assessment Last Done: 02/12/24 08:08
ED- Neurological Assessment Last Done: 02/12/24 08:08
ED- Cardiac Assessment Last Done: 02/12/24 08:08
ED Swallowing Screen Last Done: 02/12/24 08:08
Discharge Date and Time
Print Language: ARMENIAN
[2024-02-12 08:08] VITALS: BMI 26.0
[2024-02-12 08:36] LABS: Troponin I < 0.012 ng/ml
[2024-02-12 09:00] VITALS: BP 111/61
[2024-02-12 09:26] VITALS: BP 111/61
== END 2024-02-12 09:27 | disposition home or self-care (01) ==
LOC: EMR 07:12
PROVIDERS: EMERGENCY PHYSICIAN Student in an Organized Health Care Education/Training Program; FAMILY PHYSICIAN Family Medicine
DX: G45.9 Transient cerebral ischemic attack, unspecified (principal); Z86.73 Personal history of transient ischemic attack (TIA), and cerebral infarction without residual deficits; Z79.82 Long term (current) use of aspirin; Z91.011 Allergy to milk products
CPT/HCPCS: 99283; 84484; 93005

== ENCOUNTER → 2024-02-28 10:34 | Outpatient (REF) | payer OTHER, SELFPAY | LOC: WDC 10:34 | PROVIDERS: ATTENDING PHYSICIAN Family Medicine | DX: Z12.31 Encounter for screening mammogram for malignant neoplasm of breast (principal) | CPT/HCPCS: 77063; 77067 ==

== ENCOUNTER → 2024-09-15 12:58 | Outpatient (REF) | payer OTHER, SELFPAY | LOC: RAD 12:58 | PROVIDERS: ATTENDING PHYSICIAN Family Medicine | DX: M81.0 Age-related osteoporosis without current pathological fracture (principal) | CPT/HCPCS: 77080 ==

== ENCOUNTER → 2024-10-14 15:42 | Outpatient (REF) | payer OTHER, SELFPAY | LOC: RAD 15:42 | PROVIDERS: ATTENDING PHYSICIAN Family Medicine | DX: M25.551 Pain in right hip (principal); M25.561 Pain in right knee | CPT/HCPCS: 73502; 73564 ==

== ENCOUNTER → 2024-10-24 10:19 | Outpatient (REF) | payer OTHER, SELFPAY ==
[2024-10-24 11:07] LABS: % Basophils 0.8 % (0-2); % Eosinophils 3.3 % (0-6); % Immature Granulocytes 0.1 % (0-0.5); % Lymphocytes 35.5 % (20.5-51.1); % Monocytes 11.9 % (1.7-9.3); % Neutrophils 48.4 % (42.2-75.2); Absolute Basophils 0.1 10^3/uL (0-0.2); Absolute Eosinophils 0.2 10^3/uL (0-0.7); Absolute Lymphocytes 2.6 10^3/uL (1.2-3.4); Absolute Monocytes 0.9 10^3/uL (0.1-0.6); Absolute Neutrophils 3.5 10^3/uL (1.4-6.5); Hematocrit 37.1 % (37.0-47.0); Hemoglobin 12.1 g/dL (12.0-16.0); Mean Corp Hgb Conc. 32.6 g/dL (33.0-37.0); Mean Corpuscular Hgb 30.9 pg (27.0-31.0); Mean Corpuscular Volume 94.6 fL (81.0-99.0); Mean Platelet Volume 11.2 fL (7.4-10.4); Nucleated Red Blood Cells % 0 %; Platelet Count 273 10^3/uL (130-400); Red Blood Cell Count 3.92 10^6/uL (4.20-5.40); Red Cell Dist. Width 14.2 % (11.5-14.5); White Blood Cell Count 7.3 10^3/uL (4.8-10.8)
[2024-10-24 11:56] LABS: Blood Urea Nitrogen 14 mg/dl (7-17); Calcium 9.5 mg/dl (8.4-10.2); Carbon Dioxide 25 mmol/L (22-30); Chloride 104 mmol/L (98-107); Glucose 85 mg/dl (70-99); Potassium 4.7 mmol/L (3.5-5.1); Sodium 139 mmol/L (135-145); eGFR > 60.00
== END ==
LOC: RCS 10:19
PROVIDERS: ATTENDING PHYSICIAN Orthopaedic Surgery; FAMILY PHYSICIAN Family Medicine
DX: Z01.818 Encounter for other preprocedural examination (principal)
CPT/HCPCS: 36415; 80048; 85025; 93005

== ENCOUNTER → 2025-03-05 07:52 | Outpatient (REF) | payer OTHER, SELFPAY | LOC: WDC 07:52 | PROVIDERS: ATTENDING PHYSICIAN Physician Assistant; FAMILY PHYSICIAN Family Medicine | DX: Z12.31 Encounter for screening mammogram for malignant neoplasm of breast (principal) | CPT/HCPCS: 77063; 77067 ==